=== PATIENT | male | born 1950 | race Caucasian/White ===

== ENCOUNTER 2016-10-29 10:05 | Outpatient (CLI) | payer BC ==
[2016-10-29 11:08] LABS: Bilirubin Negative (Negative); Blood, Urine Negative (Negative); Glucose, Urine (Dipstick) Negative (Negative); Leukocyte Negative (Negative); Nitrite Negative (Negative); Protein, Urine (Dipstick) Negative (Neg-Trace)
[2016-10-29 11:16] LABS: Clarity Slightly Cloudy (Clear)
[2016-10-29 11:22] LABS: Cardiac Risk 2.8 (Less than 4.5)
== END 2016-10-29 10:06 | disposition home or self-care (01) ==
LOC: BURLAB 10:05
PROVIDERS: ATTEND Urology
DX: E78.4 Other hyperlipidemia (principal); R31.9 Hematuria, unspecified
CPT/HCPCS: 36415; 80061; 81003

== ENCOUNTER 2016-10-31 12:55 | Outpatient (CLI) | payer BC | END 2016-10-31 12:56 | disposition home or self-care (01) | LOC: BURLAB 12:55 | PROVIDERS: ATTEND Internal Medicine Rheumatology | DX: M06.09 Rheumatoid arthritis without rheumatoid factor, multiple sites (principal); Z79.899 Other long term (current) drug therapy | CPT/HCPCS: 36415; 86480 ==

== ENCOUNTER 2016-11-05 08:59 | Outpatient (CLI) | payer BC ==
[2016-11-05 09:13] LABS: Bilirubin Negative (Negative); Blood, Urine Negative (Negative); Clarity Clear (Clear); Glucose, Urine (Dipstick) Negative (Negative); Leukocyte Negative (Negative); Nitrite Negative (Negative); Protein, Urine (Dipstick) Negative (Neg-Trace); Specific Gravity, Urine 1.025 (1.005-1.030); Urobilinogen 0.2 mg/dL (0.2-1.0)
== END 2016-11-05 09:00 | disposition home or self-care (01) ==
LOC: BURLAB 08:59
PROVIDERS: ATTEND Urology
DX: R31.9 Hematuria, unspecified (principal)
CPT/HCPCS: 36415; 81003

== ENCOUNTER 2017-01-03 11:09 | Outpatient (CLI) | payer BC ==
--- NOTE | 2017-01-03 12:35 | RAD ---
EXAM: LEFT ANKLE 3 VIEWS: HISTORY: Pain. COMPARISON: None. FINDINGS: No significant soft tissue swelling. Joint spaces preserved. No fracture or malalignment. IMPRESSION: Unremarkable 3 views left ankle. POS: [facility]
== END 2017-01-03 11:10 | disposition home or self-care (01) ==
LOC: BURRAD 11:09
PROVIDERS: ATTEND Physician Assistant
DX: M25.572 Pain in left ankle and joints of left foot (principal)

== ENCOUNTER 2019-01-18 18:32 | Emergency (ER) | payer MEDICARE, BC ==
[2019-01-18] MEDS ORDERED: Bacitracin 1 PK ONE (18:50)
[2019-01-18] MEDS ORDERED: Sulfameth/Trimethoprim DS 800-160mg TAB ONE (18:56)
== END 2019-01-18 18:35 | disposition home or self-care (01) ==
LOC: BURERS 18:32
DX: S61.412A Laceration without foreign body of left hand, initial encounter (principal); K21.9 Gastro-esophageal reflux disease without esophagitis; N40.0 Benign prostatic hyperplasia without lower urinary tract symptoms; Z79.899 Other long term (current) drug therapy; Z79.82 Long term (current) use of aspirin; W26.0XXA Contact with knife, initial encounter
CPT/HCPCS: 99282